=== PATIENT | male | born 1955 | race Caucasian/White ===

== ENCOUNTER 2018-09-10 12:49 | Inpatient (IN) | payer OTHER ==
[~2018-09-10] VITALS: Ht 182.9 cm; Wt 75.5 kg
[2018-09-10 13:00] VITALS: Ht 182.9 cm; Wt 75.5 kg
--- NOTE | 2018-09-10 13:33 | NUR ---
PT REPORTING SUDDEN ONSET OF EPIGASTRIC PAIN TODAY BEFORE LUNCH TIME. "I THINK ITS MY PANCREATITIS AGAIN, [place] AND [place] FOR WORK AND I HAVENT BEEN ABLE TO EAT TODAY" PT ALERT AND ORIENTED, BREATHING IS SHALLOW AND EVEN, PT SKIN IS PALE AND DIAPHORETIC. PT ON FULL CM, NSR AT 76, PT REPORTING PAIN IS 10/10.
--- NOTE | 2018-09-10 13:48 | NUR ---
PT REPORTING "OH GOD, HELP ME...I THINK I MIGHT NEED TH DILAUDID.." PT RESTING WITH HEAD BACK ON GURNEY. POC, IV INFUSING WITHOUT SIGNS OF INFILTRATION. PT REPORTING NAUSEA STILL; MD AWARE AND PUTTING IN ORDERS.
[2018-09-10 13:51] LABS: BASOPHIL % 0.3 % (0-2); PLATELET COUNT 264 x10^3mcL (130-400); RED CELL DISTRIBUTION WIDTH 13.9 % (11.5-14.5)
[2018-09-10 14:14] LABS: CALCIUM 10.2 mg/dL (8.5-10.1); CARBON DIOXIDE 24.5 mmol/L (21-32); CHLORIDE SERUM 106 mmol/L (98-107); CREATININE SERUM 1.1 mg/dL (0.7-1.3); GFR1 > 60 mL/min; GLUCOSE SERUM 116 mg/dL (74-106); POTASSIUM SERUM 3.6 mmol/L (3.5-5.1); SODIUM SERUM 144 mmol/L (136-145)
[2018-09-10 14:18] LABS: ALBUMIN 4.4 g/dL (3.4-5.0); ALKALINE PHOSPHATASE 126 U/L (46-116); ALT/SGPT 49 U/L (16-63); AST/SGOT 31 U/L (15-37); BILIRUBIN TOTAL 1.1 mg/dL (0.20-1.00); LIPASE 162 IU/L (73-393); TOTAL PROTEIN, SERUM 7.8 g/dL (6.4-8.2)
--- NOTE | 2018-09-10 14:27 | NUR ---
WHILE WALKING PASS PT'S ROOM, PT FLAGGED ME DOWN TO ASK FOR MORE NAUSEA MEDICATION. DR PYLE AWARE. AWAITING NEW ORDERS.
--- NOTE | 2018-09-10 14:44 | NUR ---
EDUCATED ON MEDICATION PER EMAR, VERBALIZED UNDERSTANDING. MEDICATED AND TOLERATED WELL. PT REQUESTING MORE DILAUDED AND MORPHINE. AWARE
--- NOTE | 2018-09-10 15:01 | NUR ---
PT OFF THE FLOOR TO CT VIA LEONARD. PER TECH PT REQUESTING PAIN MEDICATION.
--- NOTE | 2018-09-10 16:29 | NUR ---
PT REPORTING HE TAKES PROTONIX, ZOFRAN, ATIVAN AND PERCOCET PRESCRIBED BUT DOES NOT KNOW THE MILLIGRAMS.
[2018-09-10 16:51] LABS: MAGNESIUM 1.9 mg/dL (1.8-2.4); PHOSPHOROUS 2.2 mg/dL (2.5-4.9)
--- NOTE | 2018-09-10 17:01 | NUR ---
CALLED TO GIVE REPORT, NOT ABLE TO RECIEVE IT AT THIS TIME, RN IS DISCHARGING A DIFFERENT PT, MORENA WILL CALL BACK IN 5 MINS.
--- NOTE | 2018-09-10 17:08 | NUR ---
CALLED AND GAVE REPORT TO MORENA LUJAN, ALL QUESTIONS ADDRESSED AT THIS TIME.
--- NOTE | 2018-09-10 17:20 | NUR ---
RECIVED PT FROM ER. ADMISSION HISTORY AND ASSESSMENT DONE. C/O EPIGASTRIC PAIN,7/10 AND NAUSEA. PT RECEIVED FENTANYL IN ER AT 1628 AND ZOFRAN IV AT 1624 FOR NAUSEA. INFORMED ABOUT THAT. ALSO INFORMED HER ABOUT PT HAS PACEMAKER AND REQUESTED FOR TELE, PT CURRENTLY MEDSURG. SHE IS AWARE ABOUT PHOS 2.2. CHARGE NURSE AWARE ABOUT PT HAS PACEMAKER. [facility] PRECAUTIONS ARE IN PLACE. WILL MONITOR.
[2018-09-10 17:34] VITALS: BP 143/79
--- NOTE | 2018-09-10 18:55 | NUR ---
TORADOL 15MG IV GIVEN FOR EPIGASTRIC PAIN,10/02. STABLE. PT IS ON TELE #8 WITH PACING 100%.
--- NOTE | 2018-09-10 19:20 | NUR ---
RECEIVED PT IN BED ASLEEP BUT EASILY AROUSABLE. NO SOB NOTED. BOWEL SOUNDS ACTIVE. HE HAS NO C/O PAIN AT THIS TIME. W/ IVF NS INFUSING AT 100 CC/HR VIA IV TO REJ. CALL LIGHT W/IN REACH.
--- NOTE | 2018-09-10 19:20 | NUR ---
PT IS SLEEPING THIS TIME. DENIES ANY PAIN AND NAUSEA THIS TIME. PT IS STABLE. GAVE REPORT TO SUBMARINE WORKER NURSE.
[2018-09-10 21:20] VITALS: BP 164/85
--- NOTE | 2018-09-10 23:09 | NUR ---
PT VOMITED APPROX 500 CC YELLOW COLORED VOMITUS. ZOFRAN 4 MG IV GIVEN.
--- NOTE | 2018-09-10 23:22 | NUR ---
PT MEDICATED W/ NORCO 7.5/325 MG PO FOR C/O ABDL PAIN 10/02.
--- NOTE | 2018-09-11 01:35 | NUR ---
PT C/O ABDL PAIN 10/02. TORADOL 15 MG IV GIVEN.
[2018-09-11 01:47] LABS: microscopic required? NO
[2018-09-11 02:21] LABS: UA SPECIFIC GRAVITY >=1.030 (1.005-1.035); urine erythrocyte NEGATIVE (NEGATIVE)
[2018-09-11 02:29] LABS: AMPHETAMINE QUAL UR NONE DETECTED (See below)
--- NOTE | 2018-09-11 04:59 | NUR ---
PT C/O NAUSEA. ZOFRAN 4 MG IV GIVEN.
--- NOTE | 2018-09-11 05:22 | NUR ---
PT RESTING QUIETLY IN BED. HE SLEPT IN LONG INTERVALS. HE C/O ON AND OFF ABDL PAIN AND NAUSEA AND WAS MEDICATED X2 FOR BOTH. HE IS ABLE TO AMBULATE W/ NO DIFFICULTY. IVF NS INFUSING WELL AT 100 CC/HR VIA IV TO RIGHT EXTERNAL JUGULAR. ALL NEEDS ATTENDED TO.
[2018-09-11 06:06] VITALS: BP 110/61
--- NOTE | 2018-09-11 06:21 | NUR ---
PT C/O ABDL PAIN 08/02. NORCO 7.5/325 MG PO GIVEN.
[2018-09-11 06:45] LABS: CALCIUM 8.7 mg/dL (8.5-10.1); CARBON DIOXIDE 18.7 mmol/L (21-32); CHLORIDE SERUM 108 mmol/L (98-107); CREATININE SERUM 1.2 mg/dL (0.7-1.3); GFR1 > 60 mL/min; GLUCOSE SERUM 169 mg/dL (74-106); PHOSPHOROUS 3.3 mg/dL (2.5-4.9); POTASSIUM SERUM 3.5 mmol/L (3.5-5.1); SODIUM SERUM 142 mmol/L (136-145)
[2018-09-11 07:01] LABS: PLATELET COUNT 222 x10^3mcL (130-400)
--- NOTE | 2018-09-11 07:30 | NUR ---
RECEIEVED PT FROM HYDRAULIC [facility]ER RN. Pete/JEANNETTE. TELE#8. DENIES CHEST PAIN/PRESSURE. RESPIRATIONS EQUAL AND UNLABORED ON RA. DENIES SOB. PT DENIES ANY N/V AT THIS TIME. PT STATES HE HAS BEEN ABLE TO TOLERATE CLEAR LIQUID BUT IN SMALL AMOUNTS. PT STATES ABDOMINAL PAIN IS 3/10 AND TOLERABLE AT THIS TIME. IV TO REJ PATENT AND INFUSING. NO REDNESS OR SWELLING NOTED. PT ASKING TO GO HOME TODAY. WILL CONTINUE TO MONITOR. CALL LIGHT IN REACH. BED IN LOWEST POSITION.
[2018-09-11 07:31] LABS: BASOPHIL % 0.1 % (0-2); RED CELL DISTRIBUTION WIDTH 14.1 % (11.5-14.5)
--- NOTE | 2018-09-11 09:50 | NUR ---
PT IN BED RESTING. NO ACUTE RESP DISTRESS NOTED ON RA. PT DENIES CHEST PAIN/PRESSURE. PT STATES ABDOMINAL PAIN IS ABOUT A 3 BUT TOLERABLE. IV PATENT AND INFUSING TO REJ. NO REDNESS OR SWELLING NOTED. DR. GOLD AND DR. CAM AT BEDSIDE, PT TO BE DISCHARGED TODAY. WILL CONTINUE TO MONITOR. CALL LIGHT IN REACH. BED IN LOWEST POSITION.
--- NOTE | 2018-09-11 10:07 | NUR ---
RECEIVED ORDERS TO TRANSFER TO MED SURG. TELE#8 [facility]ED TO [facility].
[2018-09-11 10:12] VITALS: BP 94/51
[2018-09-11 13:11] VITALS: BP 94/51
--- NOTE | 2018-09-11 13:28 | NUR ---
PT SITTING UP IN BED. GIVEN DISCHARGE INSTRUCTIONS. PT ENCOURAGED TO CONTINUE ACTIVITY TOLERATED. PT ENCOURAGED TO CONTINUE DIET TOLERATED. PT STATES I AM USED TO HAVING PANCREATITIS AND I USUALLY ONLY EAT CLEAR LIQUIDS UNTIL I FEEL BETTER. PT ENCOURAGED TO MAKE FOLLOW UP APPT WITH PCP SOON POSSIBLE. PT STATES I HAVE ALREADY TALKED TO MY PCP AND I AM GOING THIS WEEK TO GET A REFFERRAL FOR EGD. PT ENCOURAGED TO TAKE HOME MEDICATIONS PRESCRIBED. IV TO REJ REMOVED CATHETER INTACT. NO REDNESS OR SWELLING NOTED. ALL QUESTIONS AND CONCERNS ADDRESSED. NO PROBLEMS ENCOUNTERED. PT TAKEN OFF FLOOR VIA WHEELCHAIR BY POLLO.
== END 2018-09-11 13:34 | disposition home or self-care (01) | DRG 282 ==
LOC: ED 12:49 → MU 16:18 → DU 16:18 → MU 17:20 → DU 17:21 → MU 09-11 09:57
PROVIDERS: Emergency Medicine; ADMIT General Practice
DX: K85.90 Acute pancreatitis without necrosis or infection, unspecified (principal); E83.39 Other disorders of phosphorus metabolism; R74.0 Nonspecific elevation of levels of transaminase and lactic acid dehydrogenase [LDH]; Z68.24 Body mass index [BMI] 24.0-24.9, adult; Z60.2 Problems related to living alone; K57.32 Diverticulitis of large intestine without perforation or abscess without bleeding; F17.210 Nicotine dependence, cigarettes, uncomplicated; F41.9 Anxiety disorder, unspecified; Z88.8 Allergy status to other drugs, medicaments and biological substances; Z95.0 Presence of cardiac pacemaker; Z90.49 Acquired absence of other specified parts of digestive tract; Z98.49 Cataract extraction status, unspecified eye; Z71.6 Tobacco abuse counseling; Z79.899 Other long term (current) drug therapy
CPT/HCPCS: G0378; J1885; J2060; J2270; J2405; J2765; J3010; J3490; J7030